=== PATIENT | female | born 1960 | race Caucasian/White ===

== ENCOUNTER 2017-04-26 12:05 | Emergency (ER) | payer OTHER ==
[~2017-04-26 12:05] MED LIST: BUSP-8 PO; EFFSR150 PO
[2017-04-26 12:08] VITALS: TEMP 36.9; Ht 162.6 cm
--- NOTE | 2017-04-26 12:21 | EMERGENCY ROOM VISIT NOTE ---
History Report prepared by Navjot: Leoncio Bhatia Under the Supervision of: Dr. Reid Mercado M.D. First contact with patient: 12:08 Chief Complaint: FALL Stated Complaint: FALL/HEAD PAIN History of Present Illness The patient is a 57 year old female who presents to the Emergency Room with complaints of a sudden fall occurring prior to arrival. She currently rates her discomfort as a 5/10 in severity. The patient states that she was at work at the [employer], and she was in her chair moving, and it was loose. She states that while trying to move the chair gave out and she fell backwards and hit her head. She states that she did not lose consciousness. She states that she has a headache, and she has some nausea earlier. She denies any chest pain, shortness of breath, abdominal pain, vomiting, nose drainage, biting her tongue, neck pain , back pain, dizziness, and shoulder pain. She denies any blood thinners, and she states that she has a history of depression and anxiety. Source of History: patient Onset: prior to arrival Position: other (global) Symptom Intensity: 5/10 Quality: other (fall) Timing: other (sudden) Associated Symptoms: + headache, + nausea, No LOC, No neck pain, No chest pain, No SOB, No vomiting, No abdominal pain, No back pain Review of Systems See HPI for pertinent positives & negatives. A total of 10 systems reviewed and were otherwise negative. Past Medical & Surgical Medical Problems: (1) Anxiety State Nos (2) Cardiac Dysrhythmia Nos (3) Fx Metatarsal-Closed (4) Irregular Menstruation Old medical records were reviewed. Nurse's notes were reviewed and I agree with. Social History Alcohol Use: occasionally Marital Status: Occupation Status: employed Current/Historical Medications Scheduled Buspirone Hcl (Buspirone Hcl), 10 MG PO BID Venlafaxine Hcl (Effexor Extended Rel), 300 MG PO DAILY Allergies Coded Allergies: Trazodone (Unverified Allergy, Intermediate, HEART PALPS, 04/26/17) Sulfa Drugs (Verified Allergy, Unknown, 04/26/17) Physical Exam Vital Signs Date Time Temp Pulse Resp B/P (MAP) Pulse Ox O2 Delivery O2 Flow Rate FiO2 04/26/17 13:11 86 18 129/82 97 Room Air 04/26/17 12:08 36.9 86 20 136/85 95 Room Air Physical Exam General: Non-ill appearing middle aged female in no acute distress. GCS 15 HEENT: Baseline disconjugate gaze of the left eye with lateral deviation. Extra ocular movements of the right eye are intact. Mid face is stable. Normal cephalic atraumatic. Oropharynx is pink with moist mucous membranes. No swelling of the mouth lips or tongue. Neck: Supple with a midline trachea. No meningeal signs or stiffness, no JVD or bruits. No Stridor. Chest: Clear to auscultation bilaterally. No wheezes or rhonchi. No increased work of breathing. Heart: regular rate and rhythm. Abdomen: Soft nontender, nondistended without rebound guarding or rigidity. Extremities: No cyanosis clubbing or edema. No calf tenderness or assymetry Spine/Back. Non tender to palpation. No CVA tenderness Skin: Good turgor without rashes. Neurologic exam: Cranial nerves two through 12 are intact. Motor and sensation are intact and symmetrical throughout. Normal gait. Negative [facility] Medical Decision & Procedures ER Provider Diagnostic Interpretation: Radiology results as stated below per my review and radiologist interpretation: HEAD WITHOUT CONTRAST (CT) CLINICAL HISTORY: 57 years-old Female with eval for trauma. Acute head injury with trauma TECHNIQUE: Multiple axial CT images of the head were obtained without contrast. A dose lowering technique was utilized adhering to the principles of ALARA. CT DOSE: 537.48 mGy.cm COMPARISON: None. FINDINGS: No acute intracranial hemorrhage, midline shift, intracranial mass, hydrocephalus, territorial ischemia or abnormal extra-axial collection. The calvarium is intact. The mastoid air cells, and middle ear cavities are clear. Polypoid mucosal thickening of the left maxillary antrum is partially imaged. Soft tissues are unremarkable. Note is made of disconjugate gaze. IMPRESSION: No acute intracranial abnormality. No calvarial fracture. The above report was generated using voice recognition software. It may contain grammatical, syntax or spelling errors. Electronically signed by: Israel Ware M.D. 04/26/2017 12:43 PM Dictated Date/Time: 04/26/2017 12:41 PM ED Course 1208: Past medical records reviewed. The patient was evaluated in room C7, and a complete history and physical examination were performed. 1301: Upon reevaluation, the patient is doing well. I discussed the results and treatment plan with her. She verbalized agreement of the treatment plan. The patient was discharged home. Medical Decision Differentials include, but are not limited to; concussion, intracranial hemorrhage, skull fracture, syncope This patient comes in as described above. She had a mechanical fall and hit her head on concrete. She has a Imtiaz Coma Score 15. She has no acute neurologic deficits. Given her mechanism of injury, I did order CAT scan of her head. She has no other complaints. She was observed in the ER. She remained stable. She looks well. CAT scan of her head was unremarkable. She has no other complaints. She will be discharged home. She will follow-up with her regular doctor next couple days or return if any new problems or concerns. She was happy with the plan and discharged to home. Head Trauma GCS Score: 15 Medication Reconcilliation Current Medication List: was personally reviewed by me Blood Pressure Screening Patient's blood pressure: Elevated blood pressure Blood pressure disposition: Elevated BP felt to be situational Impression Primary Impression: Concussion Scribe Attestation The scribe's documentation has been prepared under my direction and personally reviewed by me in its entirety. I confirm that the note above accurately reflects all work, treatment, procedures, and medical decision making performed by me. Departure Information Dispostion Home / Self-Care Referrals Esperanza Montemayor D.O. (PCP) Forms HOME CARE DOCUMENTATION FORM, IMPORTANT VISIT INFORMATION Patient Instructions [facility] Additional Instructions Rest. Drink plenty of fluids. Avoid any other exertional activities until you are 100% he symptomatically Follow-up with your doctor in the next 2-4 days for recheck Return if: Increasing pain, numbness or weakness, worsening of symptoms, any new problems or concerns
--- NOTE | 2017-04-26 12:45 | DIAGNOSTIC IMAGING REPORT ---
HEAD WITHOUT CONTRAST (CT) CLINICAL HISTORY: 57 years-old Female with eval for trauma. Acute head injury with trauma TECHNIQUE: Multiple axial CT images of the head were obtained without contrast. A dose lowering technique was utilized adhering to the principles of ALARA. CT DOSE: 537.48 mGy.cm COMPARISON: None. FINDINGS: No acute intracranial hemorrhage, midline shift, intracranial mass, hydrocephalus, territorial ischemia or abnormal extra-axial collection. The calvarium is intact. The mastoid air cells, and middle ear cavities are clear. Polypoid mucosal thickening of the left maxillary antrum is partially imaged. Soft tissues are unremarkable. Note is made of disconjugate gaze. IMPRESSION: No acute intracranial abnormality. No calvarial fracture. The above report was generated using voice recognition software. It may contain grammatical, syntax or spelling errors. Electronically signed by: Israel Ware M.D. 04/26/2017 12:43 PM Dictated Date/Time: 04/26/2017 12:41 PM
[2017-04-26] MEDS ORDERED: EFFSR150 PO (13:07)
[2017-04-26 13:11] VITALS: BP 129/82; PULSE 86; O2SAT 97
== END 2017-04-26 13:14 | disposition home or self-care (01) ==
LOC: EDBD 12:05 → C.EDC 12:06
DX: S06.0X0A Concussion without loss of consciousness, initial encounter (principal); W07.XXXA Fall from chair, initial encounter; Y92.129 Unspecified place in nursing home as the place of occurrence of the external cause; Y99.0 Civilian activity done for income or pay; F41.9 Anxiety disorder, unspecified; F32.9 Major depressive disorder, single episode, unspecified; I49.9 Cardiac arrhythmia, unspecified; Z79.899 Other long term (current) drug therapy